=== PATIENT | male | born 1945 | race Hispanic/Latino ===

== ENCOUNTER 2019-06-07 17:31 | Inpatient (IN) | payer MEDICARE ==
[2019-06-07] MEDS ORDERED: ASPIRIN PO ONE (17:37)
--- NOTE | 2019-06-07 17:39 | Event Note ---
ED Screening Note Date of service: 06/07/19 Time: 17:38 ED Screening Note: This is a 74 y.o. M. that presents to the ER with SOB and chest pain. Spouse noticed redness and swelling around left eye yesterday. Patient is here visiting family from out of town. Dementia, Asthma, COPD, NC with stents This initial assessment/diagnostic orders/clinical plan/treatment(s) is/are subject to change based on patients health status, clinical progression and re- assessment by fellow clinical providers in the ED. Further treatment and workup at subsequent clinical providers discretion. Patient/guardian urged not to elope from the ED as their condition may be serious if not clinically assessed and managed. Initial orders include: labs, ekg, and cxr Main ED for further evaluation.
--- NOTE | 2019-06-07 18:13 | Emergency Department Report ---
ED Chest Pain HPI - General Chief Complaint: Chest Pain Stated Complaint: AUDREY/CHEST PAIN Time Seen by Provider: 06/07/19 18:05 Source: patient Mode of arrival: Ambulatory Limitations: No Limitations - History of Present Illness Initial Comments: Patient is a 74-year-old male that presents emergency room with complaints of chest pain. Patient has history of dementia so the history is per the patient's . Patient's complains of chest pain and shortness of breath. Patient's symptoms started 3 hours ago. Patient has a history of CAD and COPD. Patient's baseline dementia is A&Ox1. Patient's chest pain is severe. Patient chest pain is worse with exertion and better with rest. Patient's shortness of breath better with rest and worse with exertion. Patient denies fever and chills. Patient also complains of left eye redness and pain and swelling. Patient states the pain is better with not touching the eye and worse with palpation. Patient denies increase in pain with movement of the eye. Patient denies fever and chills. Patient states there is a slight pus from the site. Patient denies redness to the eye. Patient denies discharge from the anterior aspect of the eye. Patient complains of a insect bite to the left upper external eyelid MD Complaint: chest pain -: Sudden Onset: during rest Pain Location: substernal, left chest Pain Radiation: none Severity: severe Quality: sharp Consistency: constant Improves With: rest Worsens With: exertion re: dyspnea. denies: nausea, vomting, diaphoresis, sense of impending doom Other Symptoms: denies: cough, fever, syncope, rash, acid taste in mouth, leg swelling, palpitations Treatments Prior to Arrival: none Aspirin use within the Past 7 Days: (1) Yes - Related Data On Oral Contraceptives: No Allergies Allergy/AdvReac Type Severity Reaction Status Date / Time No Known Allergies Allergy Unverified 06/07/19 17:40 Heart Score - HEART Score History: Moderately suspicious EKG: Normal Age: > 65 Risk factors: > 3 risk factors or hx of atherosclerotic disease Troponin: < normal limit HEART Score: 5 ED Review of Systems ROS: Stated complaint: AUDREY/CHEST PAIN Other details as noted in HPI Constitutional: denies: chills, fever Eyes: denies: eye pain, eye discharge, vision change ENT: denies: ear pain, throat pain Respiratory: shortness of breath. denies: cough, wheezing Cardiovascular: chest pain. denies: palpitations Endocrine: no symptoms reported Gastrointestinal: denies: abdominal pain, nausea, diarrhea Genitourinary: denies: urgency, dysuria Musculoskeletal: denies: back pain, joint swelling, arthralgia Skin: denies: rash, lesions Neurological: denies: headache, weakness, paresthesias Psychiatric: denies: anxiety, depression Hematological/Lymphatic: denies: easy bleeding, easy bruising ED Past Medical Hx - Past Medical History Previous Medical History?: Yes Hx Heart Attack/AMI: Yes Hx Asthma: Yes Hx COPD: Yes Hx Dementia: Yes Additional medical history: Cardiac stents - Surgical History Past Surgical History?: Yes Hx Coronary Stent: Yes Additional Surgical History: Hernia repair - Family History Family history: no significant - Social History Smoking Status: Never Smoker Substance Use Type: None ED Physical Exam - General Limitations: No Limitations General appearance: alert, in no apparent distress - Head Head exam: Present: atraumatic, normocephalic - Eye Eye exam: Present: normal appearance, PERRL, EOMI, periorbital swelling, periorbital tenderness, other (no pain with extraocular movements). Absent: scleral icterus, conjunctival injection, nystagmus Pupils: Present: normal accommodation - ENT ENT exam: Present: mucous membranes moist - Neck Neck exam: Present: normal inspection - Respiratory Respiratory exam: Present: normal lung sounds bilaterally. Absent: respiratory distress, wheezes, rales, chest wall tenderness - Cardiovascular Cardiovascular Exam: Present: regular rate, normal rhythm. Absent: systolic murmur, diastolic murmur, rubs, gallop - GI/Abdominal GI/Abdominal exam: Present: soft, normal bowel sounds. Absent: distended, tenderness, guarding - Rectal Rectal exam: Present: deferred - Extremities Exam Extremities exam: Present: normal inspection - Back Exam Back exam: Present: normal inspection - Neurological Exam Neurological exam: Present: alert, oriented X3 - Psychiatric Psychiatric exam: Present: normal affect, normal mood - Skin Skin exam: Present: warm, dry, intact, normal color. Absent: rash ED Course Vital Signs 06/07/19 06/07/19 06/07/19 17:36 19:01 19:03 Temperature 98.4 F 97.9 F Pulse Rate 86 61 Respiratory 18 22 24 Rate Blood Pressure 170/71 Blood Pressure 133/67 [Left] O2 Sat by Pulse 93 96 96 Oximetry 06/07/19 06/07/19 06/07/19 19:15 19:30 20:30 Temperature 98.7 F Pulse Rate 63 63 62 Respiratory 20 14 22 Rate Blood Pressure 126/54 116/50 Blood Pressure 124/61 [Left] O2 Sat by Pulse 97 97 98 Oximetry 06/07/19 06/07/19 06/07/19 21:00 21:21 21:30 Temperature Pulse Rate 61 51 L 58 L Respiratory 28 H 17 Rate Blood Pressure 115/46 115/46 Blood Pressure [Left] O2 Sat by Pulse 98 97 Oximetry 06/07/19 06/07/19 06/07/19 21:44 21:52 22:00 Temperature Pulse Rate 57 L 78 64 Respiratory 18 13 21 Rate Blood Pressure 115/46 145/60 145/60 Blood Pressure [Left] O2 Sat by Pulse 96 99 98 Oximetry 06/07/19 06/07/19 22:10 22:20 Temperature Pulse Rate 63 57 L Respiratory 16 18 Rate Blood Pressure 159/135 159/135 Blood Pressure [Left] O2 Sat by Pulse 98 98 Oximetry - Reevaluation(s) Reevaluation #1: I discussed all results with patient and family. Patient and family agree with plan of care and admission. Patient will be admitted to the hospitalist service. 06/07/19 19:25 - Consultations Consultation #1: Hospitalist consult for admission. Hospitalist to admit patient. Bridge orders placed 06/07/19 20:15 ERIN score - Erin Score Age > 65: (1) Yes Aspirin use within the Past 7 Days: (1) Yes 3 or more CAD Risk Factors: (1) Yes 2 or more Angina events in past 24 hrs: (0) No Known CAD with more than 50% Stenosis: (0) No Elevated Cardiac Markers: (0) No ST Deviation Greater than 0.5mm: (0) No ERIN Score: 3 ED Medical Decision Making - Lab Data Result diagrams: 06/07/19 00:44 06/07/19 17:45 - EKG Data -: EKG Interpreted by De EKG shows normal: sinus rhythm, axis, intervals, QRS complexes, ST-T waves Rate: normal - Radiology Data Radiology results: report reviewed CHEST 1 VIEW INDICATION: Chest Pain. COMPARISON: none FINDINGS: SUPPORT DEVICES: None. HEART / MEDIASTINUM: No significant abnormality. LUNGS / PLEURA: No significant pulmonary or pleural abnormality. No pneumothorax. ADDITIONAL FINDINGS: IMPRESSION: 1. No acute findings. - Medical Decision Making Patient is a 74-year-old male presents emergency room with complaints of chest pain and shortness of breath. Patient has a significant coronary history. Patient had one cardiac stent. Patient also history of COPD. Patient will be admitted to the hospitalist service. Patient also found to have a left eye cellulitis secondary to a insect bite. Patient does not have any pain with extraocular movements. Patient given antibiotics. Patient given aspirin here. Patient's initial cardiac workup negative. Patient's labs positive for elevated WBC. - Differential Diagnosis ACS. Chest pain. Short of breath. CAD. Critical Care Time: Yes Critical care attestation.: If time is entered above; I have spent that time in minutes in the direct care of this critically ill patient, excluding procedure time. Critical Care Time: 35 minutes ED Disposition Clinical Impression: SOB (shortness of breath) Chest pain Qualifiers: Chest pain type: unspecified Qualified Code(s): R07.9 - Chest pain, unspecified CAD (coronary artery disease) Qualifiers: Coronary Disease-Associated Artery/Lesion type: [place] artery [place] vs. transplanted heart: [place] heart Associated angina: angina presence unspecified Qualified Code(s): I25.10 - Atherosclerotic heart disease of [place] coronary artery without angina pectoris Cellulitis Qualifiers: Site of cellulitis: face Qualified Code(s): L03.211 - Cellulitis of face Disposition: DC-09 OP ADMIT IP TO THIS HOSP Is pt being admited?: Yes Does the pt Need Aspirin: No Condition: Critical Time of Disposition: 20:28
[2019-06-07 18:14] LABS: Basophils # (Auto) 0.1 K/mm3 (0.0-0.1); Basophils % (Auto) 0.4 % (0.0-1.8); Eosinophils % (Auto) 0.3 % (0.0-4.3); Hematocrit 46.9 % (35.5-45.6); Hemoglobin 15.3 gm/dl (11.8-15.2); Lymphocytes # (Auto) 0.8 K/mm3 (1.2-5.4); Lymphocytes % (Auto) 7.1 % (13.4-35.0); Mean Corpuscular HGB Conc 33 % (32-34); Mean Corpuscular Volume 81 fl (84-94); Monocytes # (Auto) 0.6 K/mm3 (0.0-0.8); Monocytes % (Auto) 5.3 % (0.0-7.3); Platelet Count 285 K/mm3 (140-440); Red Blood Count 5.78 M/mm3 (3.65-5.03); Red Cell Distribution Width 14.9 % (13.2-15.2)
[2019-06-07 18:32] LABS: BUN/Creatinine Ratio 13; Blood Urea Nitrogen 16 mg/dL (9-20); Calcium 8.8 mg/dL (8.4-10.2); Hemolysis Index 53
--- NOTE | 2019-06-07 18:48 | XRay Report ---
CHEST 1 VIEW INDICATION: Chest Pain. COMPARISON: none FINDINGS: SUPPORT DEVICES: None. HEART / MEDIASTINUM: No significant abnormality. LUNGS / PLEURA: No significant pulmonary or pleural abnormality. No pneumothorax. ADDITIONAL FINDINGS: IMPRESSION: 1. No acute findings. Signer Name: Piter Balderrama MD Signed: 06/07/2019 6:44 PM Workstation Name: [id number]
[2019-06-07] MEDS ORDERED: ASPIRIN ONE (20:34)
[2019-06-07] MEDS ORDERED: CLEOCIN 300 MG/50 mL 300 MG/50 ML BAG IV ONE (21:00)
[2019-06-07] MEDS ORDERED: NITROSTAT SL PRN (21:36)
[2019-06-07] MEDS ORDERED: TYLENOL PO PRN (21:37)
[2019-06-07] MEDS ORDERED: MORPHINE IV PRN (21:37)
[2019-06-07] MEDS ORDERED: ZOFRAN IV PRN (21:37)
[2019-06-07] MEDS ORDERED: PROVENTIL IH PRN (21:39)
[2019-06-07] MEDS: HEPARIN SUB-Q SCH (22:26)
[2019-06-07] MEDS ORDERED: HEPARIN ONE (22:26)
[2019-06-08 01:08] LABS: Creatine Kinase MB 1.3 ng/mL (0.0-4.0)
--- NOTE | 2019-06-08 05:14 | History and Physical Report ---
CHIEF COMPLAINT: Chest pain. HISTORY OF PRESENTING ILLNESS: The patient is a 74-year-old male who has been having chest pain going on some hours prior to presentation. The patient is a poor historian because of history of dementia, and information was obtained from the who said that the patient was having severe chest pain that is worse with exertion and better with rest and was associated with shortness of breath, and pain was described as tightness in the chest. Pain does not radiate and there was no history of fever or chills and no history of cough. Also, there was no history of nausea and vomiting. The patient also complained about swelling and pain around the left eye with some redness. There was history of slight discharge from the area around the eyes, but there is no history of a blurry vision. The patient's information was noted to show that there is possible insect bite to the area around the left eye. PAST MEDICAL HISTORY: Pertinent for coronary artery disease, status post myocardial infarction, asthma, COPD, dementia. PAST SURGICAL HISTORY: Pertinent for coronary stent placement and hernia repair. FAMILY HISTORY: Noncontributory. SOCIAL HISTORY: The patient lives with family. Does not smoke, does not drink alcohol and does not use illicit drug. MEDICATIONS: The patient's home medications are not known at this time. ALLERGIES: There are no known drug allergies. REVIEW OF SYSTEMS: CONSTITUTIONAL: There is no fever, no chills, no diaphoresis. HEENT: There is no headache or sore throat. CARDIOVASCULAR SYSTEM: There is chest pain, but no orthopnea. RESPIRATORY SYSTEM: There is shortness of breath, but no cough. GASTROINTESTINAL SYSTEM: There is no nausea, no vomiting, no abdominal pain, diarrhea or constipation. NEUROLOGICAL SYSTEM: There is no numbness, no dizziness, no altered mental status. MUSCULOSKELETAL SYSTEM: There is no joint pain or swelling. DERMATOLOGICAL SYSTEM: There is swelling of the skin around the left eye with redness. GENITOURINARY SYSTEM: There is no dysuria or hematuria or flank pain. Rest of system review is normal. PHYSICAL EXAMINATION: GENERAL: At the time of exam, the patient was found to be alert, oriented to person and not in acute distress. VITAL SIGNS: At the initial time of presentation showed temperature of 98.4 degrees Fahrenheit, pulse of 86, respirations 18, blood pressure 170/79 which eventually came down to 115/46, O2 sat of 93-96% on room air. HEENT: Showed pupils to be equal, round, reactive to light and accommodation. Extraocular muscles are intact. There is swelling around the left eye area with redness. NECK: Supple with no JVD or carotid bruit. CARDIOVASCULAR SYSTEM: Showed normal first and second heart sounds with no gallops or murmurs. RESPIRATORY SYSTEM: Showed good air entry on both sides of the lungs with no abnormal breath sounds. GASTROINTESTINAL SYSTEM: Showed abdomen to be full, soft, nontender with no organomegaly or rigidity. NEUROLOGICAL: Shows no focal deficit. MUSCULOSKELETAL SYSTEM: Showed no joint swelling or tenderness. DERMATOLOGICAL SYSTEM: Shows swelling around the left eye area with some redness, which is tender to touch. GENITOURINARY SYSTEM: Showed no costovertebral angle tenderness. PERTINENT LABORATORY AND IMAGING STUDIES: The patient had chest x-ray done that shows no acute findings. The patient's lab result shows CBC with elevated white count of 12,000, elevated hemoglobin of 15.3 and elevated hematocrit of 46.9 with CBC differential showing elevated segmented neutrophil count of 86.9%. The patient's chemistry showed normal sodium, normal potassium, with high chloride level of 109.9 with a low CO2 of 16 and rest of chemistry was unremarkable. The patient's cardiac enzyme troponin came back normal. DIAGNOSES: 1. Chest pain. 2. Left periorbital cellulitis. PLAN OF CARE: 1. The patient will be admitted to telemetry. 2. The patient will have serial cardiac enzymes involving troponin, total CK, and CK-MB checked every 6 hours x 2 more levels. 3. The patient will be on Tylenol 650 mg by mouth every 4 hours for fever and headache. 4. The patient will be on aspirin 325 mg by mouth daily. 5. The patient will be on heparin 5000 units subcutaneously q.12 hours. 6. The patient will be on IV morphine 2 mg every 3 hours as needed for pain and IV Zofran 4 mg every 8 hours as needed for nausea and vomiting. 7. The patient will be on nitro paste 0.5 inch to anterior chest wall q.i.d. and Nitrostat 0.4 mg sublingual every 5 minutes as needed for breakthrough chest pain. 8. The patient will remain n.p.o. for Lexiscan stress test this morning. 9. The patient will be on oxygen by nasal cannula at 2 liters per minute. 10. The patient will be on Zosyn 3.375 grams q.8 hours for treatment of left periorbital cellulitis. 11. The patient will have gentamicin eye drop 0.3% putting into the left eye 3 times daily. 12. The patient will be on Tylenol 650 mg by mouth every 4 hours for fever and headache and will be on albuterol nebulizer 2.5 mg by inhalation every 4 hours as needed for shortness of breath. JOB# [id number] OCN/NTS
[2019-06-08] MEDS: ZOSYN/NS 3.375GM/50ML 3.375 GM/50 ML BAG IV SCH ×3 (05:34→21:28)
[2019-06-08] MEDS: NITRO-BID 2% TP SCH ×4 (05:41→18:26)
[2019-06-08 06:10] LABS: Creatine Kinase MB 1.4 ng/mL (0.0-4.0)
[2019-06-08] MEDS ORDERED: LEXISCAN IV ONE (08:42)
[2019-06-08] MEDS ORDERED: NACL 0.45% 1000 ML 1,000 ML IV SCH (09:30)
[2019-06-08] MEDS ORDERED: ASPIRIN PO SCH (10:00)
[2019-06-08] MEDS ORDERED: PROVENTIL IH PRN (11:00)
[2019-06-08] MEDS: DUONEB *Not for PRN Use IH SCH ×3 (11:25→20:41)
[2019-06-08] MEDS: HEPARIN SUB-Q SCH ×2 (12:40→21:23)
--- NOTE | 2019-06-08 12:49 | Consultation ---
History of Present Illness Consult date: 06/08/19 Requesting physician: LESLEY GARCIA Consult reason: other (abnormal stress test) History of present illness: The pt is a 74 YO male with a past medical history of CAD s/p AMI and PCI 2 years ago, PVD s/p multiple stents in BLE, HTN, HLP, COPD (denies any prior tobacco use), dementia. Pt has dementia and thus most of HPI is obtained per pt's at bedside. Pt is from [place], [place] and regularly sees a cardiol ogist, Dr. Isbell, there in [place]. Pt presented with c/o left eyelid swelling, pain and discharge. Pt's reports that they are in town visiting some family members. Pt woke up yesterday morning and was noted to have a lot of swelling and redness over his left eye. placed warm compress on left eye and eye began to produce purulent drainage so they decided to seek medical attention. Pt's denies any occurrence of chest pain, palpitations, n/v, diaphoresis, dizziness or syncope. Pt is chronically SOB due to COPD and his SOB is unchanged from baseline. Pt underwent lexiscan MPI stress test this AM which showed mild inferior reversibility and thus cardiology has been consulted. Past History Past Medical History: CAD, hypertension, hyperlipidemia, other (PVD ) Past Surgical History: PTCA, Other (BLE stenting) Social history: , lives with family. denies: smoking, alcohol abuse, prescription drug abuse Medications and Allergies Allergies Allergy/AdvReac Type Severity Reaction Status Date / Time No Known Allergies Allergy Unverified 06/07/19 17:40 Active Meds: Active Medications Acetaminophen (Tylenol) 650 mg PO Q4H PRN PRN Reason: Headache Albuterol (Proventil) 2.5 mg IH Q3HRT PRN PRN Reason: Shortness Of Breath Albuterol/Ipratropium (Duoneb *Not For Prn Use*) 1 ampul IH Q6HRT [facility] Aspirin (Aspirin) 325 mg PO QDAY [facility] Heparin Sodium (Porcine) (Heparin) 5,000 unit SUB-Q Q12HR [facility] Last Admin: 06/07/19 22:26 Dose: 5,000 unit Documented by: Piperacillin Sod/Tazobactam Sod (Zosyn/Ns 3.375gm/50ml) 3.375 gm in 50 mls @ 100 mls/hr IV Q8HR [facility]; Protocol Last Admin: 06/08/19 05:34 Dose: 100 mls/hr Documented by: Sodium Chloride (Nacl 0.45% 1000 Ml) 1,000 mls @ 75 mls/hr IV DIRECT [facility] Morphine Sulfate (Morphine) 2 mg IV Q3H PRN PRN Reason: Pain, Moderate (4-6) Last Admin: 06/07/19 23:18 Dose: 2 mg Documented by: Moxifloxacin HCl (Vigamox) 1 drops OU Q8HR [facility] Stop: 06/10/19 06:01 Nitroglycerin (Nitro-Bid 2%) 0.5 inch TP QIDNTG [facility]; Protocol Last Admin: 06/08/19 05:41 Dose: Not Given Documented by: Nitroglycerin (Nitrostat) 0.4 mg SL .Q5MIN PRN PRN Reason: Chest Pain Ondansetron HCl (Zofran) 4 mg IV Q8H PRN PRN Reason: Nausea And Vomiting Review of Systems Constitutional: no weight loss, no weight gain, no fever, no chills, no sweats Eyes: right: other (left eyelid swelling, redness and pain, no eye pain or redness) Ears, nose, mouth and throat: no ear pain, no nose pain, no sinus pressure, no sinus pain Cardiovascular: shortness of breath (chronic), dyspnea on exertion (chronic), no chest pain, no orthopnea, no palpitations, no rapid/irregular heart beat, no edema, no syncope, no lightheadedness, no paroxysmal nocturnal dyspnea, no leg edema Respiratory: shortness of breath, dyspnea on exertion, no cough with sputum, no congestion, no wheezing, no pain on inspiration Gastrointestinal: no abdominal pain, no nausea, no vomiting, no diarrhea, no constipation, no change in bowel habits Genitourinary Male: no dysuria, no hematuria, no flank pain, no discharge, no urinary frequency, no urinary hesitancy Musculoskeletal: no neck stiffness, no neck pain Integumentary: redness (left eyelid), no sores, no wounds Neurological: no head injury, no paralysis, no weakness, no parathesias, no numbness, no tingling, no seizures, no syncope Psychiatric: no anxiety Endocrine: no cold intolerance, no heat intolerance Hematologic/Lymphatic: no easy bruising, no easy bleeding Allergic/Immunologic: no urticaria, no wheezing Physical Examination Vital Signs Temp Pulse Resp BP Pulse Ox 98.4 F 86 18 170/71 93 06/07/19 17:36 06/07/19 17:36 06/07/19 17:36 06/07/19 17:36 06/07/19 17:36 General appearance: no acute distress HEENT: Positive: PERRL, Normocephaly, Mucus Membranes Moist, Other (left eyelid swelling and redness) Neck: Positive: neck supple, trachea midline Cardiac: Positive: Reg Rate and Rhythm, S1/S2 Lungs: Positive: Decreased Breath Sounds Neuro: Positive: Grossly Intact Abdomen: Positive: Soft. Negative: Tender Skin: Positive: Other (left eyelid swelling and redness) Extremities: Absent: edema Results 06/07/19 00:44 06/07/19 17:45 Cardiac Enzymes 06/08/19 06/08/19 Range/Units 00:10 04:35 CK-MB (CK-2) 1.3 1.4 (0.0-4.0) ng/mL CBC 06/07/19 Range/Units 00:44 WBC 12.0 H (4.5-11.0) K/mm3 RBC 5.78 H (3.65-5.03) M/mm3 Hgb 15.3 H (11.8-15.2) gm/dl Hct 46.9 H (35.5-45.6) % Plt Count 285 (140-440) K/mm3 Lymph # 0.8 L (1.2-5.4) K/mm3 [facility] # 0.6 (0.0-0.8) K/mm3 Eos # 0.0 (0.0-0.4) K/mm3 Baso # 0.1 (0.0-0.1) K/mm3 Comprehensive Metabolic Panel 06/07/19 Range/Units 17:45 Sodium 141 (137-145) mmol/L Potassium 4.3 (3.6-5.0) mmol/L Chloride 109.9 H (98-107) mmol/L Carbon Dioxide 16 L (22-30) mmol/L BUN 16 (9-20) mg/dL Creatinine 1.2 (0.8-1.5) mg/dL Glucose 135 H (75-100) mg/dL Calcium 8.8 (8.4-10.2) mg/dL - Imaging and Cardiology EKG: report reviewed, image reviewed EKG interpretations - Telemetry EKG Rhythm: Sinus Rhythm - EKG Sinus rhythms and dysrhythmias: sinus rhythm Assessment and Plan Pt presented with suspected left eyelid cellulitis. He has a history of CAD s/p AMI with PCI 2 years ago in [place], [place]. Pt underwent lexiscan MPI stress test this AM which showed mild inferior reversibility, normal EF, and thus cardiology has been consulted. Pt denies any occurrence of chest pain, palpitations, n/v, diaphoresis, dizziness or syncope. Pt is chronically SOB due to COPD and his SOB is unchanged from baseline. ECG with no acute ischemic changes, Maria Guadalupe negative for AMI. Currently stable cardiac status. In the absence of any cardiac symptoms and AMI ruled out, will continue with medical management. Pt and pt's are agreeable to this plan as they prefer to return to [place] and follow up with pt's doctors there. Pt may discharge home from cardiology standpoint on home cardiac regimen, including ASA 81 and Plavix. Recommend pt follow up with his primary continuous miner within 1-2 weeks of hospital discharge. Pt and pt's verbalize understanding. Pt's plans to request medical records from this admission, including stress test images, and will review with pt's continuous miner. The patient has been seen in conjunction with Dr. Octavia Newell who agrees with the assessment and plan of care. - Patient Problems (1) Cellulitis Current Visit: Yes Status: Acute Qualifiers: Site of cellulitis: periorbital Qualified Code(s): L03.211 - Cellulitis of face (2) Abnormal stress test Current Visit: Yes Status: Acute (3) CAD (coronary artery disease) Current Visit: Yes Status: Chronic Qualifiers: Coronary Disease-Associated Artery/Lesion type: [place] artery [place] vs. transplanted heart: [place] heart Associated angina: angina presence unspecified Qualified Code(s): I25.10 - Atherosclerotic heart disease of [place] coronary artery without angina pectoris (4) Stented coronary artery Current Visit: Yes Status: Chronic (5) HTN (hypertension) Current Visit: Yes Status: Chronic (6) Hyperlipidemia Current Visit: Yes Status: Chronic (7) PVD (peripheral vascular disease) Current Visit: Yes Status: Chronic (8) COPD (chronic obstructive pulmonary disease) Current Visit: Yes Status: Chronic (9) Dementia Current Visit: Yes Status: Chronic
--- NOTE | 2019-06-08 13:19 | Progress Note ---
Assessment and Plan Assessment and plan: Acute chest pain rule out ACS -Serial troponin levels negative -Stress test abnormal -Cardiology consulted -Continue medical management with aspirin and Plavix Left orbital cellulitis -On IV antibiotic, eyedrop added Acute metabolic acidosis -IV fluid, will monitor bicarbonate level COPD/Asthma -No acute exacerbation -Continue PRN neb breathing treatment Dementia -Stable DVT prophylaxis with heparin Disposition: Due to the abnormal stress test and his cellulitis, we will continue inpatient medical management History Interval history: Patient seen today. He denies current chest pain or shortness of breath. He was concerned about the drainage from his left eye with asso pain, which was probably due to a spider bite. He has no new complaints. Hospitalist Physical - Constitutional Vitals: Temp Pulse Resp BP Pulse Ox 98.3 F 53 L 16 139/59 99 06/08/19 08:19 06/08/19 08:19 06/08/19 08:19 06/08/19 11:03 06/08/19 08:19 General appearance: Present: no acute distress - EENT Eyes: Present: PERRL, EOM intact (discharge with erythema noted in the left eye) ENT: hearing intact, clear oral mucosa - Neck Neck: Present: supple - Respiratory Respiratory effort: normal Respiratory: bilateral: CTA - Cardiovascular Rhythm: regular Heart Sounds: Present: S1 & S2 - Extremities Extremities: No edema - Abdominal General gastrointestinal: soft, non-tender, normal bowel sounds - Integumentary Integumentary: Present: clear, warm, dry - Neurologic Neurologic: moves all extremities Results - Labs CBC & Chem 7: 06/07/19 00:44 06/07/19 17:45 Labs: Laboratory Last Values WBC 12.0 K/mm3 (4.5-11.0) H 06/07/19 00:44 RBC 5.78 M/mm3 (3.65-5.03) H 06/07/19 00:44 Hgb 15.3 gm/dl (11.8-15.2) H 06/07/19 00:44 Hct 46.9 % (35.5-45.6) H 06/07/19 00:44 MCV 81 fl (84-94) L 06/07/19 00:44 MCH 26 pg (28-32) L 06/07/19 00:44 MCHC 33 % (32-34) 06/07/19 00:44 RDW 14.9 % (13.2-15.2) 06/07/19 00:44 Plt Count 285 K/mm3 (140-440) 06/07/19 00:44 Lymph % (Auto) 7.1 % (13.4-35.0) L 06/07/19 00:44 Noble % (Auto) 5.3 % (0.0-7.3) 06/07/19 00:44 Eos % (Auto) 0.3 % (0.0-4.3) 06/07/19 00:44 Baso % (Auto) 0.4 % (0.0-1.8) 06/07/19 00:44 Lymph # 0.8 K/mm3 (1.2-5.4) L 06/07/19 00:44 Noble # 0.6 K/mm3 (0.0-0.8) 06/07/19 00:44 Eos # 0.0 K/mm3 (0.0-0.4) 06/07/19 00:44 Baso # 0.1 K/mm3 (0.0-0.1) 06/07/19 00:44 Seg Neutrophils % 86.9 % (40.0-70.0) H 06/07/19 00:44 Seg Neutrophils # 10.4 K/mm3 (1.8-7.7) H 06/07/19 00:44 Sodium 141 mmol/L (137-145) 06/07/19 17:45 Potassium 4.3 mmol/L (3.6-5.0) 06/07/19 17:45 Chloride 109.9 mmol/L (98-107) H 06/07/19 17:45 Carbon Dioxide 16 mmol/L (22-30) L 06/07/19 17:45 19 mmol/L 06/07/19 17:45 BUN 16 mg/dL (9-20) 06/07/19 17:45 1.2 mg/dL (0.8-1.5) 06/07/19 17:45 Estimated GFR 60 ml/min 06/07/19 17:45 13 % 06/07/19 17:45 Glucose 135 mg/dL (75-100) H 06/07/19 17:45 Calcium 8.8 mg/dL (8.4-10.2) 06/07/19 17:45 26 units/L (55-170) L 06/08/19 04:35 CK-MB (CK-2) 1.4 ng/mL (0.0-4.0) 06/08/19 04:35 CK-MB (CK-2) Rel Index 5.3 (0-4) H 06/08/19 04:35 < 0.010 ng/mL (0.00-0.029) 06/08/19 04:35 Active Medications - Current Medications Current Medications: Generic Name Dose Route Start Last Admin Trade Name Freq PRN Reason Stop Dose Admin Acetaminophen 650 mg 06/07/19 21:37 Tylenol PO Q4H PRN Headache Albuterol 2.5 mg 06/08/19 11:00 Proventil IH Q3HRT PRN Shortness Of Breath Albuterol/Ipratropium 1 ampul 06/08/19 10:00 Duoneb *Not For Prn Use* IH Q6HRT KRYSTAL Aspirin 81 mg 06/09/19 10:00 Baby Aspirin PO QDAY KRYSTAL Clopidogrel Bisulfate 75 mg 06/08/19 13:00 Plavix PO QDAY KRYSTAL Heparin Sodium (Porcine) 5,000 unit 06/07/19 22:00 06/08/19 12:40 Heparin SUB-Q 5,000 unit Q12HR KRYSTAL Administration Piperacillin Sod/Tazobactam Sod 3.375 gm in 50 mls @ 100 mls/hr 06/08/19 06:00 06/08/19 05:34 Zosyn/Ns 3.375gm/50ml IV 100 mls/hr Q8HR KRYSTAL Administration Protocol Sodium Chloride 1,000 mls @ 75 mls/hr 06/08/19 09:30 06/08/19 12:41 Nacl 0.45% 1000 Ml IV 75 mls/hr DIRECT KRYSTAL Administration Morphine Sulfate 2 mg 06/07/19 21:37 06/07/19 23:18 Morphine IV 2 mg Q3H PRN Administration Pain, Moderate (4-6) Moxifloxacin HCl 1 drops 06/08/19 09:00 Vigamox OU 06/10/19 06:01 Q8HR [facility] Nitroglycerin 0.5 inch 06/08/19 06:00 06/08/19 12:41 Nitro-Bid 2% TP Not Given QIDNTG [facility] Protocol Nitroglycerin 0.4 mg 06/07/19 21:36 Nitrostat SL .Q5MIN PRN Chest Pain Ondansetron HCl 4 mg 06/07/19 21:37 Zofran IV Q8H PRN Nausea And Vomiting
[2019-06-08] MEDS: VIGAMOX OU SCH ×3 (13:28→21:23)
[2019-06-08] MEDS: PLAVIX PO SCH (13:28)
[2019-06-08] MEDS: SODIUM BICARBONATE PO SCH ×2 (18:28→21:28)
[2019-06-08] MEDS ORDERED: APRESOLINE IV ONE (19:00)
[2019-06-08] MEDS ORDERED: PERCOCET 5/325 PO PRN (22:13)
[2019-06-09] MEDS: DUONEB *Not for PRN Use IH SCH ×2 (01:28→11:24)
--- NOTE | 2019-06-09 04:00 | Treadmill Report ---
NUCLEAR PERFUSION SCAN REFERRING PHYSICIAN: Hospitalist. PROTOCOL: The patient was brought to the stress lab in a postabsorptive state, given 10 mCi of technetium 99m at rest. The patient underwent rest imaging. The patient underwent Lexiscan stress test. At peak stress, the patient was given 26 mCi of technetium 99m. Shortly thereafter, the patient underwent stress imaging. Raw imaging reveals mild GI artifact, no significant motion artifact. SPECT image examined carefully in the horizontal long axis, vertical long axis, and short axis views. There is a moderate-sized inferior and inferoapical reversible defect, questionable ischemia. LV function is normal, 62%. No TID. CONCLUSIONS: 1. Mildly abnormal myocardial perfusion scan with inferior apical reversible perfusion defect, questionable ischemia. 2. Normal left ventricular systolic performance. Clinical correlation suggested. JOB# [id number] BALJINDER/ASHER
[2019-06-09 05:08] LABS: Hematocrit 41.1 % (35.5-45.6); Hemoglobin 13.6 gm/dl (11.8-15.2); Mean Corpuscular HGB Conc 33 % (32-34); Mean Corpuscular Volume 80 fl (84-94); Platelet Count 237 K/mm3 (140-440); Red Blood Count 5.11 M/mm3 (3.65-5.03); Red Cell Distribution Width 15.1 % (13.2-15.2)
[2019-06-09] MEDS: ZOSYN/NS 3.375GM/50ML 3.375 GM/50 ML BAG IV SCH (05:08)
[2019-06-09] MEDS: VIGAMOX OU SCH (05:08)
[2019-06-09 05:20] LABS: BUN/Creatinine Ratio 16; Blood Urea Nitrogen 14 mg/dL (9-20); Calcium 8.4 mg/dL (8.4-10.2); Hemolysis Index 1
[2019-06-09] MEDS: NITRO-BID 2% TP SCH (06:21)
[2019-06-09 08:56] VITALS: BP 164/61
[2019-06-09] MEDS ORDERED: BABY ASPIRIN PO SCH (10:00)
[2019-06-09] MEDS ORDERED: NORVASC PO SCH (10:00)
[2019-06-09] MEDS ORDERED: LOVENOX SUB-Q SCH (10:00)
[2019-06-09] MEDS: SODIUM BICARBONATE PO SCH (12:02)
[2019-06-09] MEDS: PLAVIX PO SCH (12:02)
[2019-06-09] MEDS ORDERED: ZOSYN/NS 4.5GM/100ML 4.5 GM/100 ML VIAL IV SCH (14:00)
--- NOTE | 2019-06-09 23:10 | Discharge Summary ---
Providers - Providers Date of Admission: 06/09/19 08:29 Date of discharge: 06/09/19 Attending physician: LESLEY GARCIA 06/08/19 11:14 Physical Therapy Evaluation and Treat [CONS] Routine Comment: Reason For Exam: generalized weakness 06/08/19 13:03 Consult to Cardiology [CONS] Routine Consulting Provider: MADELYN GAMBINO Reason For Exam: ABNORMAL STRESS TEST Hospitalization Reason for admission: Acute chest pain, rule out ACS, LT eye cellulitis Condition: Fair Pertinent studies: Nuclear stress test: Mild inferior reversibility Procedures: None Hospital course: Final discharge diagnosis: Acute chest pain with abnormal stress test, likely due to known CAD, acute IL ruled out Left orbital cellulitis Hypertensive urgency Acute metabolic acidosis CAD PVD HLD COPD/Asthma Dementia Physical deconditioning Hospital course: Pt was admitted and placed on chest pain pathway. In addition, he was placed on IV antibiotic for the cellulitis as well as anti-bacterial eye drop. For the metabolic acidosis, he received oral supplements with sodium bicarbonate. Serial troponin done were negative. Further evaluation with stress test was done which showed mild abnormality. Cardiology was then consulted. However, after evaluation, medical mgx with out-pt cardiology follow up was recommended. At some point, the pt's BP accelerated for which he received anti-hypertensives with improvement. Subsequently, he improved clinically and was then deemed stable for discharge with clinic follow up. Disposition: TO HOME OR SELFCARE Time spent for discharge: 38 minutes Core Measure Documentation - Palliative Care Palliative Care/ Comfort Measures: Not Applicable - Core Measures Any of the following diagnoses?: none Exam - Constitutional Vitals: Temp Pulse Resp BP Pulse Ox 97.4 F L 43 L 16 164/61 95 06/09/19 08:48 06/09/19 09:23 06/09/19 08:48 06/09/19 08:48 06/09/19 08:48 General appearance: Present: no acute distress, well-nourished - EENT Eyes: Present: PERRL, EOM intact (erythema around LT eye improved ) ENT: hearing intact, clear oral mucosa - Neck Neck: Present: supple, normal ROM - Respiratory Respiratory effort: normal Respiratory: bilateral: CTA - Cardiovascular Rhythm: regular Heart Sounds: Present: S1 & S2. Absent: rub, click - Extremities Extremities: No edema - Abdominal General gastrointestinal: Present: soft, non-tender, non-distended, normal bowel sounds Male genitourinary: Present: deferred - Musculoskeletal Musculoskeletal: gait normal, strength equal bilaterally - Psychiatric Psychiatric: appropriate mood/affect - Neurologic Neurologic: moves all extremities Plan Follow up with: JOHNIE CLINTON [Other] - 7 Days Prescriptions: Doxycycline Hyclate [Doxycycline Hyclate TAB] 100 mg PO Q12HR #10 tab Moxifloxacin HCl [Moxeza] 3 ml OP TID #1 drops.visc Sodium Bicarbonate 650 mg PO TID 3 Days #9 tablet
== END 2019-06-09 12:20 | disposition home or self-care (01) | DRG 121 ==
LOC: ED 17:31 → 4A 20:29 → OBSVTOIN 06-09 08:29
PROVIDERS: ADMIT Internal Medicine; ATTEND Internal Medicine
DX: H05.012 Cellulitis of left orbit (principal); E87.2 Acidosis; I25.10 Atherosclerotic heart disease of native coronary artery without angina pectoris; I16.0 Hypertensive urgency; I73.9 Peripheral vascular disease, unspecified; E78.5 Hyperlipidemia, unspecified; J44.9 Chronic obstructive pulmonary disease, unspecified; F03.90 Unspecified dementia, unspecified severity, without behavioral disturbance, psychotic disturbance, mood disturbance, and anxiety; I10 Essential (primary) hypertension; Z95.5 Presence of coronary angioplasty implant and graft; I25.2 Old myocardial infarction
CPT/HCPCS: 36415; 71045; 78452; 80048; 82550; 82553; 84484; 85025; 85027; 93005; 93010; 93017; 94640; G0378; A9502; J0360; J1644; J2270; J2543; J2785; J7030